=== PATIENT | female | born 1965 | race Caucasian/White ===

== ENCOUNTER 2021-11-02 21:14 | Emergency (ER) | payer OTHER ==
[2021-11-02] MEDS ORDERED: Lidocaine 1% 5 ML VIAL INJECT ONE (22:14)
[2021-11-02] MEDS ORDERED: Ketorolac 30 MG/ML SDV IM ONE (22:14)
[2021-11-02] MEDS ORDERED: Bacitracin Oint 1 GM U/D Packet TOP ONE (23:36)
== END 2021-11-02 23:50 | disposition home or self-care (01) ==
LOC: MW.ED 21:14
DX: S01.81XA Laceration without foreign body of other part of head, initial encounter (principal); S60.511A Abrasion of right hand, initial encounter; S60.512A Abrasion of left hand, initial encounter; W01.10XA Fall on same level from slipping, tripping and stumbling with subsequent striking against unspecified object, initial encounter
CPT/HCPCS: 12011; 96372; 99282; J1885